=== PATIENT | male | born 1950 | race Caucasian/White ===

== ENCOUNTER 2017-10-29 22:12 | Emergency (ER) | payer OTHER, MEDICARE ==
[2017-10-29 22:29] VITALS: BP 152/83; PULSE 80; O2SAT 98
[2017-10-29] MEDS ORDERED: XYLOCAINE 1% HCL 20 ML MDV IJ ONE (22:50)
--- NOTE | 2017-10-29 22:56 | ERPHSYRPT ---
- History of Present Illness Time Seen by Provider: 10/29/17 22:45 Source: patient Exam Limitations: no limitations Patient Subjective Stated Complaint: Pt arrives to ER with c/o fish hook stuck in padding of left 5th (pinky) finger through and through Triage Nursing Assessment: see above Physician History: 67 y/o male comes to the ER with complaints of fish hook stuck in the right pinky finger just prior to arrival. Pt admits to having pain as high as 7/10 and has not had his tetanus shot in many years. Occurred: just prior to arrival Quality: constant Severity of Pain-Max: moderate Severity of Pain-Current: moderate Extremities Pain Location: 5th finger: right Modifying Factors: Improves With: nothing Associated Symptoms: none Allergies/Adverse Reactions: Penicillins Adverse Reaction (Verified 10/29/17 22:30) Rash Hx Tetanus, Diphtheria Vaccination/Date Given: No - Review of Systems Constitutional: No Fever, No Chills Eyes: No Symptoms Ears, Nose, & Throat: No Symptoms Respiratory: No Cough, No Dyspnea Cardiac: No Chest Pain, No Edema, No Syncope Abdominal/Gastrointestinal: No Abdominal Pain, No Nausea, No Vomiting, No Diarrhea Genitourinary Symptoms: No Dysuria Musculoskeletal: Myalgias, No Back Pain, No Neck Pain Skin: Other (fish hook right pinky finger), No Rash Neurological: No Dizziness, No Focal Weakness, No Sensory Changes Psychological: No Symptoms Endocrine: No Symptoms All Other Systems: Reviewed and Negative - Past Medical History Pertinent Past Medical History: Yes Respiratory History: Sleep Apnea - Past Surgical History Past Surgical History: Yes Gastrointestinal: Colon Resection, Hernia Repair Musculoskeletal: Orthopedic Surgery Other Surgical History: bilateral rotator cuff - Social History Smoking Status: Never smoker Exposure to second hand smoke: No Drug Use: none Patient Lives Alone: No - Nursing Vital Signs Nursing Vital Signs: Initial Vital Signs Temperature 98.2 F 10/29/17 22:24 Pulse Rate 80 10/29/17 22:24 Respiratory Rate 18 10/29/17 22:24 Blood Pressure 152/83 10/29/17 22:24 O2 Sat by Pulse Oximetry 98 10/29/17 22:24 Pain Scale Pain Intensity 6 - Physical Exam General Appearance: alert Eyes, Ears, Nose, Throat Exam: moist mucous membranes Neck Exam: non-tender, supple Cardiovascular/Respiratory Exam: chest non-tender, normal breath sounds, regular rate/rhythm, no respiratory distress Abdominal Exam: non-tender, No guarding Back Exam: normal inspection, No vertebral tenderness Shoulder Exam: normal inspection, non-tender Elbow/Forearm Exam: normal inspection, non-tender Wrist Exam: normal inspection, non-tender Hand Exam: soft tissue tenderness (fish hook right pinky finger) Neuro/Tendon Exam: normal sensation, normal motor functions Mental Status Exam: alert, oriented x 3, cooperative Skin Exam: normal color, warm, dry SpO2: 98 Oxygen Delivery: Room Air - Course Nursing assessment & vital signs reviewed: Yes Ordered Tests: Medication Summary Discontinued Medications Generic Name Dose Route Start Last Admin Trade Name Andrewq PRN Reason Stop Dose Admin Diphtheria/Tetanus/Acell Pertussis Confirm 10/29/17 22:59 Adacel Vial Administered 10/29/17 23:00 Dose 0.5 ml IM .STK-MED ONE Lidocaine HCl 10 ml 10/29/17 22:50 10/29/17 23:02 Xylocaine 1% Hcl 20 Ml Mdv IJ 10/29/17 22:51 10 ml STAT ONE Administration Lidocaine HCl Confirm 10/29/17 22:58 Xylocaine 1% Hcl 20 Ml Mdv Administered 10/29/17 22:59 Dose 10 ml .ROUTE .STK-MED ONE Trimethoprim/Sulfamethoxazole 1 tab 10/29/17 23:44 Bactrim Ds Tablet PO 10/29/17 23:45 STAT STA - Progress Progress: improved Progress Note: 10/29/17 23:46 I was able to remove the fish hook with hemostat. I first gave 5 cc of lidocaine to numb the area. Pt will be d/c home with bactrim. - Departure Time of Disposition: 23:48 Departure Disposition: Home Clinical Impression: [place] injury to finger Qualifiers: Encounter type: initial encounter Laterality: right Qualified Code(s): S69.91XA - Unspecified injury of right wrist, hand and finger(s), initial encounter Condition: Stable Critical Care Time: No Instructions: Common Finger Injuries (DC) Additional Instructions: Follow up with your primary care doctor if you continue to have pain, numbness, swelling, fever or chills. Prescriptions: Sulfamethoxazole/Trimethoprim [Bactrim Ds Tablet] 1 each PO BID #13 tablet
[2017-10-29] MEDS ORDERED: XYLOCAINE 1% HCL 20 ML MDV ONE (22:58)
[2017-10-29] MEDS ORDERED: Adacel Vial IM ONE (22:59)
[2017-10-29] MEDS ORDERED: BACTRIM DS TABLET PO STA (23:44)
[2017-10-30] MEDS ORDERED: BACTRIM DS TABLET PO ONE
== END 2017-10-30 00:27 | disposition home or self-care (01) ==
LOC: ED 22:12
DX: S61.246A Puncture wound with foreign body of right little finger without damage to nail, initial encounter (principal); W45.8XXA Other foreign body or object entering through skin, initial encounter; W27.8XXA Contact with other nonpowered hand tool, initial encounter; Y93.89 Activity, other specified
CPT/HCPCS: 90471; 90715; 96372; 99284; A9270-GY